=== PATIENT | male | born 1985 | race Caucasian/White ===

== ENCOUNTER 2018-02-10 05:57 | Emergency (ER) | payer MEDICAID ==
[~2018-02-10] VITALS: Ht 170.2 cm; Wt 86.4 kg
[2018-02-10] MEDS ORDERED: LOSA25TA21 PO (06:09)
[2018-02-10 07:17] VITALS: BP 130/77
== END 2018-02-10 08:15 | disposition home or self-care (01) ==
LOC: EMS 05:58
DX: J32.9 Chronic sinusitis, unspecified (principal); I10 Essential (primary) hypertension
CPT/HCPCS: 99283